=== PATIENT | male | born 1940 | race Caucasian/White ===

== ENCOUNTER 2018-10-09 15:35 | Inpatient (IN) | payer MEDICARE, OTHER ==
[2018-10-09 16:48] LABS: MODE NASAL CANNULA; MetHgb Venous 0.4 %; Sample Type Blood venous; Site VENOUS LINE; Venous COHb 0.3 %; Venous Fraction OxyHgb 87.4 %; Venous Total Hemglobin 14.5 g/dl
[2018-10-09 16:55] LABS: ADD MAN DIFF? NO
[2018-10-09] MEDS: SOD CHLORIDE 0.9% 700 ML IV (17:00)
[2018-10-09 17:03] LABS: WHITE BLOOD COUNT 15.3 10^3/ul (4.8-10.8)
[2018-10-09 17:03] LABS: BASOPHILS % 0.2 % (0.0-2.0); HEMATOCRIT 38.1 % (42.0-52.0); HEMOGLOBIN 12.6 g/dl (14.0-18.0); LYMPHOCYTES # 1.8 10^3/ul (0.8-2.9); LYMPHOCYTES % 11.8 % (15.0-51.0); MEAN CORPUSCULAR HEMOGLOBIN 29.4 pg (29.0-33.0); MEAN CORPUSCULAR HGB CONC 33.1 g/dl (32.0-37.0); MEAN PLATELET VOLUME 10.6 fl (7.4-10.4); MONOCYTE # 1.4 10^3/ul (0.3-0.9); MONOCYTES % 9.4 % (0.0-11.0); NEUTROPHIL # 11.9 10^3/ul (1.6-7.5); NEUTROPHILS % 77.9 % (39.0-77.0); PLATELET COUNT 343 10^3/UL (140-415); RED BLOOD COUNT 4.28 10^6/ul (4.70-6.10); RED CELL DISTRIBUTION WIDTH 13.2 % (11.5-14.5)
[2018-10-09 17:20] LABS: ALANINE AMINOTRANSFERASE 22 IU/L (13-69); ALBUMIN 4.3 g/dl (3.3-4.9); ALBUMIN/GLOBULIN RATIO 1.34; ALKALINE PHOSPHATASE 113 IU/L (42-121); ANION GAP 28 (5-13); ASPARTATE AMINO TRANSFERASE 23 IU/L (15-46); BILIRUBIN,INDIRECT 0.4 mg/dl (0-1.1); BILIRUBIN,TOTAL 0.4 mg/dl (0.2-1.3); BLOOD UREA NITROGEN 47 mg/dl (7-20); CARBON DIOXIDE 14 mmol/L (21-31); CHLORIDE 87 mmol/L (97-110); CREATININE 2.52 mg/dl (0.61-1.24); MAGNESIUM 2.4 mg/dl (1.7-2.5); PHOSPHORUS 3.3 mg/dl (2.5-4.9); POTASSIUM 5.3 mmol/L (3.5-5.1); SODIUM 129 mmol/L (135-144); TOTAL PROTEIN 7.5 g/dl (6.1-8.1)
[2018-10-09 17:23] LABS: INR 0.89; PROTIME 12.2 Sec (11.9-14.9)
[2018-10-09 17:24] LABS: PARTIAL THROMBOPLASTIN TIME 31.1 Sec (23.0-35.0)
[2018-10-09 17:29] LABS: GLUCOSE 420 mg/dl (70-220)
[2018-10-09 17:30] LABS: TROPONIN-I < 0.012 ng/ml (0.000-0.120)
[2018-10-09] MEDS ORDERED: NS + KCL 40 MEQ 1,000 ML IV (17:50)
[2018-10-09] MEDS ORDERED: DEXTROSE 10%/0.45% NACL 1,000 ML IV (17:50)
[2018-10-09] MEDS ORDERED: D10/0.45% NACL + KCL 30 MEQ 1,000 ML IV (17:50)
[2018-10-09] MEDS ORDERED: NS + KCL 30 MEQ 1,000 ML IV (17:50)
[2018-10-09] MEDS ORDERED: D10/0.45% NACL + KCL 40 MEQ 1,000 ML IV (17:50)
[2018-10-09] MEDS ORDERED: DEXTROSE 50% 50 ML SYRINGE IV ×2 (18:00)
[2018-10-09 18:20] LABS: HEMOGLOBIN A1C 10.8 % (0-5.9)
[2018-10-09] MEDS: LACTATED RINGER'S 700 ML IV (18:40)
[2018-10-09 19:30] LABS: ANION GAP 20 (5-13); BLOOD UREA NITROGEN 46 mg/dl (7-20); CALCIUM 8.8 mg/dl (8.4-10.2); CARBON DIOXIDE 14 mmol/L (21-31); CHLORIDE 92 mmol/L (97-110); MAGNESIUM 2.2 mg/dl (1.7-2.5); PHOSPHORUS 3.6 mg/dl (2.5-4.9); POTASSIUM 5.3 mmol/L (3.5-5.1); SODIUM 126 mmol/L (135-144)
[2018-10-09 19:47] LABS: URINE BLOOD (Dip) POC Trace-intact (NEGATIVE); URINE KETONES (Dip) POC 4+ (NEGATIVE); URINE LEUKOCYTE EST (Dip) POC Negative (NEGATIVE); URINE NITRITE (Dip) POC Negative (NEGATIVE); URINE TOTAL PROTEIN POC 1+ (NEGATIVE)
[2018-10-09 19:48] LABS: GLUCOSE 432 mg/dl (70-220)
[2018-10-09 20:04] LABS: MODE NASAL CANNULA; MetHgb Venous 0.5 %; Sample Type Blood venous; Site VENOUS LINE; Venous COHb 0.3 %; Venous Fraction OxyHgb 74.4 %; Venous Total Hemglobin 12.2 g/dl
[2018-10-09 20:20] LABS: ADD UMIC YES; UR ASCORBIC ACID NEGATIVE (NEGATIVE); UR BILIRUBIN (Dip) NEGATIVE (NEGATIVE); UR BLOOD (Dip) 1+ mg/dL (NEGATIVE); UR CLARITY CLEAR (CLEAR); UR COLOR YELLOW (YELLOW); UR GLUCOSE (Dip) 3+ mg/dL (NEGATIVE); UR KETONES (Dip) 2+ mg/dL (NEGATIVE); UR LEUKOCYTE ESTERASE (Dip) NEGATIVE Leu/ul (NEGATIVE); UR MUCUS FEW /HPF (NONE SEEN); UR NITRITE (Dip) NEGATIVE (NEGATIVE); UR RBC 1 /HPF (0-5); UR SPECIFIC GRAVITY (Dip) 1.018 (1.003-1.030); UR TOTAL PROTEIN (Dip) NEGATIVE (NEGATIVE); UR UROBILINOGEN (Dip) NEGATIVE (NEGATIVE); UR WBC 0 /HPF (0-5)
[2018-10-09] MEDS: INSULIN REGULAR, HUMAN 100 UNIT in SOD CHLORIDE 0.9% 100 ML IV (21:06)
[2018-10-09] MEDS: SOD CHLORIDE 0.9% 1,000 ML IV (21:40)
[2018-10-09 22:16] LABS: MODE NASAL CANNULA; MetHgb Venous 0.5 %; Sample Type Blood venous; Site VENOUS LINE; Venous COHb 0.3 %; Venous Fraction OxyHgb 82.9 %; Venous Oxygen Sat 83.6 mmHG (55.0-75.0); Venous Total Hemglobin 12.3 g/dl
[2018-10-09 23:33] LABS: ANION GAP 28 (5-13); BLOOD UREA NITROGEN 44 mg/dl (7-20); CALCIUM 9.3 mg/dl (8.4-10.2); CHLORIDE 93 mmol/L (97-110); CREATININE 2.47 mg/dl (0.61-1.24); MAGNESIUM 2.2 mg/dl (1.7-2.5); PHOSPHORUS 4.6 mg/dl (2.5-4.9); POTASSIUM 5.8 mmol/L (3.5-5.1); SODIUM 130 mmol/L (135-144)
[2018-10-09 23:42] LABS: CARBON DIOXIDE 9 mmol/L (21-31); GLUCOSE 567 mg/dl (70-220)
[2018-10-10] MEDS ORDERED: ONDANSETRON 4 MG INJ IV (02:00)
[2018-10-10] MEDS ORDERED: DEXTROSE 50% 50 ML SYRINGE IV ×3 (02:00→20:00)
[2018-10-10] MEDS ORDERED: ZOLPIDEM 5 MG TAB PO (02:00)
[2018-10-10] MEDS ORDERED: NS + KCL 30 MEQ 1,000 ML IV (02:00)
[2018-10-10] MEDS ORDERED: NS + KCL 40 MEQ 1,000 ML IV (02:00)
[2018-10-10] MEDS ORDERED: D10/0.45% NACL + KCL 40 MEQ 1,000 ML IV (02:00)
[2018-10-10] MEDS: SOD CHLORIDE 0.9% 1,000 ML IV (02:16)
[2018-10-10] MEDS: INSULIN REGULAR, HUMAN 100 UNIT in SOD CHLORIDE 0.9% 100 ML IV ×2 (02:16→09:21)
[2018-10-10] MEDS: ACCU-CHEK XX ×14 (02:18→15:00)
[2018-10-10] MEDS: DEXTROSE 10%/0.45% NACL 1,000 ML IV (03:11)
[2018-10-10 03:26] LABS: Allen Test ACCEPTAB; MODE NASAL CANNULA; MetHgb Venous 0.5 %; Sample Type Blood venous; Site VENOUS LINE; Venous COHb 0.3 %; Venous Fraction OxyHgb 61.8 %; Venous Oxygen Sat 62.3 mmHG (55.0-75.0); Venous Total Hemglobin 11.5 g/dl
[2018-10-10 05:14] LABS: ANION GAP 15 (5-13); BLOOD UREA NITROGEN 40 mg/dl (7-20); CALCIUM 9.2 mg/dl (8.4-10.2); CARBON DIOXIDE 21 mmol/L (21-31); CHLORIDE 102 mmol/L (97-110); CREATININE 1.85 mg/dl (0.61-1.24); GLUCOSE 200 mg/dl (70-220); MAGNESIUM 2.2 mg/dl (1.7-2.5); PHOSPHORUS 2.6 mg/dl (2.5-4.9); POTASSIUM 4.7 mmol/L (3.5-5.1); SODIUM 138 mmol/L (135-144)
[2018-10-10] MEDS: PANTOPRAZOLE (EC) 40 MG TAB PO (06:10)
[2018-10-10 06:18] LABS: MODE NASAL CANNULA; MetHgb Venous 0.2 %; Sample Type Blood venous; Site VENOUS LINE; Venous COHb 0.4 %; Venous Fraction OxyHgb 55.2 %; Venous Oxygen Sat 55.5 mmHG (55.0-75.0); Venous Total Hemglobin 12.6 g/dl
[2018-10-10 06:50] LABS: HEMOGLOBIN A1C 11.1 % (0-5.9)
[2018-10-10] MEDS: D10/0.45% NACL + KCL 30 MEQ 1,000 ML IV (07:02)
[2018-10-10 07:26] LABS: ANION GAP 14 (5-13); BLOOD UREA NITROGEN 39 mg/dl (7-20); CARBON DIOXIDE 20 mmol/L (21-31); CHLORIDE 103 mmol/L (97-110); CREATININE 1.68 mg/dl (0.61-1.24); GLUCOSE 189 mg/dl (70-220); MAGNESIUM 2.1 mg/dl (1.7-2.5); PHOSPHORUS 2.5 mg/dl (2.5-4.9); POTASSIUM 4.7 mmol/L (3.5-5.1); SODIUM 137 mmol/L (135-144)
[2018-10-10] MEDS: QUETIAPINE 25 MG TAB PO ×3 (08:23→20:43)
[2018-10-10] MEDS: LEVETIRACETAM 500 MG TAB PO ×2 (08:23→20:42)
[2018-10-10 08:47] LABS: THYROID STIMULATING HORMONE 0.582 MIU/L (0.465-4.680)
[2018-10-10 10:30] LABS: ANION GAP 7 (5-13); BLOOD UREA NITROGEN 32 mg/dl (7-20); CALCIUM 8.4 mg/dl (8.4-10.2); CARBON DIOXIDE 23 mmol/L (21-31); CHLORIDE 105 mmol/L (97-110); CREATININE 1.29 mg/dl (0.61-1.24); GLUCOSE 186 mg/dl (70-220); PHOSPHORUS 1.6 mg/dl (2.5-4.9); POTASSIUM 3.6 mmol/L (3.5-5.1); SODIUM 135 mmol/L (135-144)
[2018-10-10] MEDS ORDERED: INSULIN HUMAN REGULAR 100 UNIT in SOD CHLORIDE 0.9% 99 ML IV (12:00)
[2018-10-10] MEDS: DEXTROSE 5%-0.45% NACL 1,000 ML IV (12:28)
[2018-10-10] MEDS: DEXTROSE 50% 50 ML SYRINGE IV ×3 (13:28→17:56)
[2018-10-10] MEDS: POTASSIUM PHOSPHATE 15 MM in SOD CHLORIDE 0.9% 250 ML IVPB (13:32)
[2018-10-10] MEDS: INSULIN ASPART [NOVOLOG] 3 ML PEN SC ×3 (17:35→20:43)
[2018-10-10] MEDS ORDERED: GLUCAGON 1 MG INJ IM (20:00)
[2018-10-10] MEDS ORDERED: GLUCOSE GEL 15 GRAM TUBE PO ×2 (20:00)
[2018-10-10] MEDS ORDERED: GLUCOSE GEL 15 GRAM TUBE BUCCAL (20:00)
[2018-10-10] MEDS: INSULIN GLARGINE [LANTus] (100 UNITS/ML) SYG SC (20:54)
[2018-10-11] MEDS: ACCU-CHEK XX (02:00)
[2018-10-11] MEDS: PANTOPRAZOLE (EC) 40 MG TAB PO (05:25)
[2018-10-11 05:42] LABS: ADD MAN DIFF? NO
[2018-10-11 06:03] LABS: WHITE BLOOD COUNT 7.2 10^3/ul (4.8-10.8)
[2018-10-11 06:03] LABS: BASOPHILS % 0.1 % (0.0-2.0); EOSINOPHILS # 0.2 10^3/ul (0.0-0.5); EOSINOPHILS % 2.2 % (0.0-7.0); HEMATOCRIT 35.8 % (42.0-52.0); HEMOGLOBIN 11.9 g/dl (14.0-18.0); LYMPHOCYTES # 1.7 10^3/ul (0.8-2.9); LYMPHOCYTES % 22.9 % (15.0-51.0); MEAN CORPUSCULAR HEMOGLOBIN 29.3 pg (29.0-33.0); MEAN CORPUSCULAR HGB CONC 33.2 g/dl (32.0-37.0); MEAN CORPUSCULAR VOLUME 88.2 fl (82.0-101.0); MEAN PLATELET VOLUME 10.8 fl (7.4-10.4); MONOCYTE # 0.6 10^3/ul (0.3-0.9); MONOCYTES % 8.9 % (0.0-11.0); NEUTROPHIL # 4.7 10^3/ul (1.6-7.5); NEUTROPHILS % 65.5 % (39.0-77.0); PLATELET COUNT 185 10^3/UL (140-415); RED BLOOD COUNT 4.06 10^6/ul (4.70-6.10); RED CELL DISTRIBUTION WIDTH 13.6 % (11.5-14.5)
[2018-10-11 06:19] LABS: ANION GAP 10 (5-13); BLOOD UREA NITROGEN 16 mg/dl (7-20); CALCIUM 8.9 mg/dl (8.4-10.2); CARBON DIOXIDE 25 mmol/L (21-31); CHLORIDE 103 mmol/L (97-110); CREATININE 0.82 mg/dl (0.61-1.24); GLUCOSE 119 mg/dl (70-220); MAGNESIUM 1.8 mg/dl (1.7-2.5); PHOSPHORUS 2.6 mg/dl (2.5-4.9); POTASSIUM 3.7 mmol/L (3.5-5.1); SODIUM 138 mmol/L (135-144)
[2018-10-11] MEDS: INSULIN ASPART [NOVOLOG] 3 ML PEN SC ×7 (07:50→20:22)
[2018-10-11] MEDS: LEVETIRACETAM 500 MG TAB PO ×2 (08:37→20:21)
[2018-10-11] MEDS: QUETIAPINE 25 MG TAB PO ×3 (08:37→20:21)
[2018-10-11] MEDS: ENOXAPARIN 30 MG/0.3 ML SYG SC (08:44)
[2018-10-11] MEDS: DEXTROSE 50% 50 ML SYRINGE IV (12:16)
[2018-10-11] MEDS: POTASSIUM CHLORIDE 50 ML IVPB (20:21)
[2018-10-11] MEDS: INSULIN GLARGINE [LANTus] (100 UNITS/ML) SYG SC (20:53)
[2018-10-12] MEDS: ACCU-CHEK XX (02:00)
[2018-10-12] MEDS: PANTOPRAZOLE (EC) 40 MG TAB PO (05:15)
[2018-10-12] MEDS: INSULIN ASPART [NOVOLOG] 3 ML PEN SC ×7 (07:55→20:08)
[2018-10-12] MEDS: LEVETIRACETAM 500 MG TAB PO ×2 (08:24→20:09)
[2018-10-12] MEDS: QUETIAPINE 25 MG TAB PO ×3 (08:25→20:08)
[2018-10-12] MEDS: ENOXAPARIN 30 MG/0.3 ML SYG SC (08:33)
[2018-10-12] MEDS: SENNA TAB PO ×2 (12:04→20:08)
[2018-10-12] MEDS: INSULIN GLARGINE [LANTus] (100 UNITS/ML) SYG SC (20:18)
[2018-10-13] MEDS: ACCU-CHEK XX ×2 (02:00→18:04)
[2018-10-13 05:19] LABS: ADD MAN DIFF? NO
[2018-10-13 05:30] LABS: WHITE BLOOD COUNT 5.1 10^3/ul (4.8-10.8)
[2018-10-13 05:30] LABS: BASOPHILS % 0.2 % (0.0-2.0); EOSINOPHILS # 0.1 10^3/ul (0.0-0.5); EOSINOPHILS % 1.8 % (0.0-7.0); HEMATOCRIT 36.7 % (42.0-52.0); HEMOGLOBIN 11.7 g/dl (14.0-18.0); LYMPHOCYTES # 1.8 10^3/ul (0.8-2.9); LYMPHOCYTES % 35.6 % (15.0-51.0); MEAN CORPUSCULAR HEMOGLOBIN 28.7 pg (29.0-33.0); MEAN CORPUSCULAR HGB CONC 31.9 g/dl (32.0-37.0); MEAN CORPUSCULAR VOLUME 90.2 fl (82.0-101.0); MONOCYTE # 0.5 10^3/ul (0.3-0.9); MONOCYTES % 10.1 % (0.0-11.0); NEUTROPHIL # 2.6 10^3/ul (1.6-7.5); NEUTROPHILS % 51.9 % (39.0-77.0); PLATELET COUNT 207 10^3/UL (140-415); RED BLOOD COUNT 4.07 10^6/ul (4.70-6.10); RED CELL DISTRIBUTION WIDTH 13.5 % (11.5-14.5)
[2018-10-13 05:58] LABS: ANION GAP 9 (5-13); BLOOD UREA NITROGEN 15 mg/dl (7-20); CALCIUM 8.9 mg/dl (8.4-10.2); CARBON DIOXIDE 32 mmol/L (21-31); CHLORIDE 98 mmol/L (97-110); CREATININE 0.75 mg/dl (0.61-1.24); GLUCOSE 297 mg/dl (70-220); POTASSIUM 4.7 mmol/L (3.5-5.1); SODIUM 139 mmol/L (135-144)
[2018-10-13] MEDS: PANTOPRAZOLE (EC) 40 MG TAB PO (06:32)
[2018-10-13] MEDS: INSULIN ASPART [NOVOLOG] 3 ML PEN SC ×8 (07:30→20:26)
[2018-10-13] MEDS: SENNA TAB PO ×2 (08:21→20:16)
[2018-10-13] MEDS: LEVETIRACETAM 500 MG TAB PO ×2 (08:21→20:16)
[2018-10-13] MEDS: QUETIAPINE 25 MG TAB PO ×3 (08:21→20:29)
[2018-10-13] MEDS: ENOXAPARIN 30 MG/0.3 ML SYG SC (08:27)
[2018-10-13] MEDS: INSULIN GLARGINE [LANTus] (100 UNITS/ML) SYG SC (20:26)
[2018-10-14] MEDS: ACCU-CHEK XX (01:53)
[2018-10-14] MEDS: PANTOPRAZOLE (EC) 40 MG TAB PO (07:14)
[2018-10-14] MEDS: SENNA TAB PO ×2 (08:36→20:07)
[2018-10-14] MEDS: LEVETIRACETAM 500 MG TAB PO ×2 (08:36→20:07)
[2018-10-14] MEDS: QUETIAPINE 25 MG TAB PO ×3 (08:36→20:07)
[2018-10-14] MEDS: ENOXAPARIN 30 MG/0.3 ML SYG SC (08:41)
[2018-10-14] MEDS: INSULIN ASPART [NOVOLOG] 3 ML PEN SC ×8 (08:46→20:50)
[2018-10-14] MEDS: INSULIN GLARGINE [LANTus] (100 UNITS/ML) SYG SC (20:50)
[2018-10-14] MEDS: NPH, HUMAN INSULIN ISOPHANE 3ML VIAL SC (21:42)
[2018-10-15] MEDS: ACCU-CHEK XX (02:33)
[2018-10-15] MEDS: PANTOPRAZOLE (EC) 40 MG TAB PO (05:37)
[2018-10-15 06:48] LABS: ANION GAP 11 (5-13); BLOOD UREA NITROGEN 13 mg/dl (7-20); CALCIUM 8.4 mg/dl (8.4-10.2); CARBON DIOXIDE 28 mmol/L (21-31); CHLORIDE 100 mmol/L (97-110); CREATININE 0.56 mg/dl (0.61-1.24); GLUCOSE 120 mg/dl (70-220); SODIUM 139 mmol/L (135-144)
[2018-10-15] MEDS ORDERED: INSULIN ASPART [NOVOLOG] 3 ML PEN SC (07:00)
[2018-10-15] MEDS: INSULIN ASPART [NOVOLOG] 3 ML PEN SC ×7 (07:59→21:00)
[2018-10-15] MEDS: QUETIAPINE 25 MG TAB PO ×3 (08:28→21:08)
[2018-10-15] MEDS: SENNA TAB PO ×2 (08:28→21:08)
[2018-10-15] MEDS: LEVETIRACETAM 500 MG TAB PO ×2 (08:28→21:08)
[2018-10-15] MEDS: ENOXAPARIN 30 MG/0.3 ML SYG SC (08:34)
[2018-10-15] MEDS: INSULIN GLARGINE [LANTus] (100 UNITS/ML) SYG SC (21:22)
[2018-10-15] MEDS: NPH, HUMAN INSULIN ISOPHANE 3ML VIAL SC (21:22)
[2018-10-16] MEDS: ACCU-CHEK XX (02:06)
[2018-10-16] MEDS: PANTOPRAZOLE (EC) 40 MG TAB PO (06:16)
[2018-10-16 06:34] LABS: ANION GAP 8 (5-13); BLOOD UREA NITROGEN 17 mg/dl (7-20); CALCIUM 9.4 mg/dl (8.4-10.2); CARBON DIOXIDE 27 mmol/L (21-31); CHLORIDE 103 mmol/L (97-110); CREATININE 0.62 mg/dl (0.61-1.24); GLUCOSE 245 mg/dl (70-220); MAGNESIUM 1.7 mg/dl (1.7-2.5); POTASSIUM 4.9 mmol/L (3.5-5.1); SODIUM 138 mmol/L (135-144)
[2018-10-16] MEDS: INSULIN ASPART [NOVOLOG] 3 ML PEN SC ×7 (07:48→21:00)
[2018-10-16] MEDS: QUETIAPINE 25 MG TAB PO ×3 (07:57→21:22)
[2018-10-16] MEDS: SENNA TAB PO ×2 (07:58→21:21)
[2018-10-16] MEDS: LEVETIRACETAM 500 MG TAB PO ×2 (07:58→21:21)
[2018-10-16] MEDS: ENOXAPARIN 30 MG/0.3 ML SYG SC (08:04)
[2018-10-16 14:07] LABS: C-PEPTIDE <0.10 ng/mL (0.80-3.85)
[2018-10-16] MEDS: NPH, HUMAN INSULIN ISOPHANE 3ML VIAL SC (21:29)
[2018-10-16] MEDS: INSULIN GLARGINE [LANTus] (100 UNITS/ML) SYG SC (21:29)
[2018-10-17] MEDS: ACCU-CHEK XX (02:15)
[2018-10-17] MEDS: PANTOPRAZOLE (EC) 40 MG TAB PO (05:30)
[2018-10-17] MEDS: INSULIN ASPART [NOVOLOG] 3 ML PEN SC ×7 (07:00→21:07)
[2018-10-17] MEDS: SENNA TAB PO ×2 (08:18→21:03)
[2018-10-17] MEDS: LEVETIRACETAM 500 MG TAB PO ×2 (08:18→21:03)
[2018-10-17] MEDS: QUETIAPINE 25 MG TAB PO ×3 (08:19→21:03)
[2018-10-17] MEDS: ENOXAPARIN 30 MG/0.3 ML SYG SC (10:06)
[2018-10-17] MEDS: INSULIN GLARGINE [LANTus] (100 UNITS/ML) SYG SC (21:07)
[2018-10-17] MEDS: NPH, HUMAN INSULIN ISOPHANE 3ML VIAL SC (21:08)
[2018-10-18] MEDS: ACCU-CHEK XX (01:28)
[2018-10-18] MEDS: PANTOPRAZOLE (EC) 40 MG TAB PO (05:37)
[2018-10-18] MEDS: INSULIN ASPART [NOVOLOG] 3 ML PEN SC ×7 (07:00→21:00)
[2018-10-18] MEDS: SENNA TAB PO ×2 (08:39→20:34)
[2018-10-18] MEDS: QUETIAPINE 25 MG TAB PO ×3 (08:39→20:34)
[2018-10-18] MEDS: LEVETIRACETAM 500 MG TAB PO ×2 (08:39→20:34)
[2018-10-18] MEDS: ENOXAPARIN 30 MG/0.3 ML SYG SC (08:47)
[2018-10-18] MEDS: INSULIN GLARGINE [LANTus] (100 UNITS/ML) SYG SC (20:39)
[2018-10-18] MEDS: NPH, HUMAN INSULIN ISOPHANE 3ML VIAL SC (22:00)
[2018-10-19] MEDS: ACCU-CHEK XX (02:00)
[2018-10-19 05:29] LABS: ADD MAN DIFF? NO
[2018-10-19 05:38] LABS: BASOPHIL # 0.1 10^3/ul (0.0-0.1); BASOPHILS % 0.9 % (0.0-2.0); EOSINOPHILS # 0.1 10^3/ul (0.0-0.5); EOSINOPHILS % 1.6 % (0.0-7.0); HEMATOCRIT 37.2 % (42.0-52.0); HEMOGLOBIN 12.1 g/dl (14.0-18.0); LYMPHOCYTES # 2.8 10^3/ul (0.8-2.9); LYMPHOCYTES % 41.9 % (15.0-51.0); MEAN CORPUSCULAR HEMOGLOBIN 29.1 pg (29.0-33.0); MEAN CORPUSCULAR HGB CONC 32.5 g/dl (32.0-37.0); MEAN CORPUSCULAR VOLUME 89.4 fl (82.0-101.0); MONOCYTE # 1.1 10^3/ul (0.3-0.9); MONOCYTES % 16.6 % (0.0-11.0); NEUTROPHIL # 2.5 10^3/ul (1.6-7.5); NEUTROPHILS % 37.4 % (39.0-77.0); PLATELET COUNT 404 10^3/UL (140-415); RED BLOOD COUNT 4.16 10^6/ul (4.70-6.10); RED CELL DISTRIBUTION WIDTH 14.2 % (11.5-14.5)
[2018-10-19 05:38] LABS: WHITE BLOOD COUNT 6.7 10^3/ul (4.8-10.8)
[2018-10-19] MEDS: PANTOPRAZOLE (EC) 40 MG TAB PO (05:52)
[2018-10-19 06:04] LABS: ANION GAP 9 (5-13); BLOOD UREA NITROGEN 22 mg/dl (7-20); CARBON DIOXIDE 26 mmol/L (21-31); CHLORIDE 106 mmol/L (97-110); CREATININE 0.71 mg/dl (0.61-1.24); GLUCOSE 186 mg/dl (70-220); POTASSIUM 4.2 mmol/L (3.5-5.1); SODIUM 141 mmol/L (135-144)
[2018-10-19] MEDS: INSULIN ASPART [NOVOLOG] 3 ML PEN SC ×7 (07:00→20:38)
[2018-10-19] MEDS: SENNA TAB PO ×2 (09:06→20:38)
[2018-10-19] MEDS: LEVETIRACETAM 500 MG TAB PO ×2 (09:06→20:38)
[2018-10-19] MEDS: QUETIAPINE 25 MG TAB PO ×3 (09:06→20:38)
[2018-10-19] MEDS: ENOXAPARIN 30 MG/0.3 ML SYG SC (09:11)
[2018-10-19] MEDS: INSULIN GLARGINE [LANTus] (100 UNITS/ML) SYG SC (20:41)
[2018-10-19] MEDS: NPH, HUMAN INSULIN ISOPHANE 3ML VIAL SC ×2 (22:00→22:35)
[2018-10-20] MEDS: ACCU-CHEK XX (01:55)
[2018-10-20] MEDS: PANTOPRAZOLE (EC) 40 MG TAB PO (06:11)
[2018-10-20] MEDS: SENNA TAB PO ×2 (08:18→20:34)
[2018-10-20] MEDS: LEVETIRACETAM 500 MG TAB PO ×2 (08:18→20:34)
[2018-10-20] MEDS: INSULIN ASPART [NOVOLOG] 3 ML PEN SC ×7 (08:23→20:40)
[2018-10-20] MEDS: QUETIAPINE 25 MG TAB PO ×3 (08:24→20:34)
[2018-10-20] MEDS: ENOXAPARIN 30 MG/0.3 ML SYG SC (08:24)
[2018-10-20] MEDS: INSULIN GLARGINE [LANTus] (100 UNITS/ML) SYG SC (20:39)
[2018-10-21] MEDS: ACETAMINOPHEN 325 MG TAB PO (01:25)
[2018-10-21] MEDS: ACCU-CHEK XX (02:00)
[2018-10-21] MEDS: PANTOPRAZOLE (EC) 40 MG TAB PO (05:30)
[2018-10-21] MEDS: INSULIN ASPART [NOVOLOG] 3 ML PEN SC ×7 (07:00→21:00)
[2018-10-21] MEDS: ENOXAPARIN 30 MG/0.3 ML SYG SC (09:05)
[2018-10-21] MEDS: SENNA TAB PO ×2 (09:06→21:05)
[2018-10-21] MEDS: QUETIAPINE 25 MG TAB PO ×3 (09:06→21:05)
[2018-10-21] MEDS: LEVETIRACETAM 500 MG TAB PO ×2 (09:06→21:05)
[2018-10-21] MEDS: INSULIN GLARGINE [LANTus] (100 UNITS/ML) SYG SC (21:09)
[2018-10-22] MEDS: ACCU-CHEK XX (01:39)
[2018-10-22] MEDS: PANTOPRAZOLE (EC) 40 MG TAB PO (06:18)
[2018-10-22] MEDS: INSULIN ASPART [NOVOLOG] 3 ML PEN SC ×7 (08:12→20:39)
[2018-10-22] MEDS: ENOXAPARIN 30 MG/0.3 ML SYG SC (08:13)
[2018-10-22] MEDS: LEVETIRACETAM 500 MG TAB PO ×2 (08:15→20:40)
[2018-10-22] MEDS: SENNA TAB PO ×2 (08:15→20:39)
[2018-10-22] MEDS: QUETIAPINE 25 MG TAB PO ×3 (08:15→20:39)
[2018-10-22] MEDS: INSULIN GLARGINE [LANTus] (100 UNITS/ML) SYG SC (20:41)
[2018-10-23] MEDS: ACCU-CHEK XX (02:00)
[2018-10-23] MEDS: PANTOPRAZOLE (EC) 40 MG TAB PO (05:42)
[2018-10-23] MEDS: SENNA TAB PO ×2 (08:25→21:35)
[2018-10-23] MEDS: QUETIAPINE 25 MG TAB PO ×3 (08:25→21:35)
[2018-10-23] MEDS: LEVETIRACETAM 500 MG TAB PO ×2 (08:25→21:35)
[2018-10-23] MEDS: ENOXAPARIN 30 MG/0.3 ML SYG SC (08:27)
[2018-10-23] MEDS: INSULIN ASPART [NOVOLOG] 3 ML PEN SC ×7 (08:33→21:36)
[2018-10-23] MEDS: INSULIN GLARGINE [LANTus] (100 UNITS/ML) SYG SC (21:36)
[2018-10-24] MEDS: ACCU-CHEK XX (02:00)
[2018-10-24] MEDS: PANTOPRAZOLE (EC) 40 MG TAB PO (06:15)
[2018-10-24] MEDS: LEVETIRACETAM 500 MG TAB PO (08:28)
[2018-10-24] MEDS: QUETIAPINE 25 MG TAB PO ×2 (08:28→12:31)
[2018-10-24] MEDS: SENNA TAB PO (08:28)
[2018-10-24] MEDS: INSULIN ASPART [NOVOLOG] 3 ML PEN SC ×4 (08:31→12:27)
[2018-10-24] MEDS: ENOXAPARIN 30 MG/0.3 ML SYG SC (08:34)
== END 2018-10-24 16:00 | DRG 638 ==
LOC: ICU 18:24 → 2NE 10-18 02:20 → E/R 15:35 → PP2 10-22 21:55 → 5EC 10-22 22:21 → ICU 10-10 01:31 → 6WM 10-10 22:06
PROVIDERS: Internal Medicine
DX: E10.10 Type 1 diabetes mellitus with ketoacidosis without coma (principal); N17.9 Acute kidney failure, unspecified; R65.10 Systemic inflammatory response syndrome (SIRS) of non-infectious origin without acute organ dysfunction; Z79.82 Long term (current) use of aspirin; Z79.4 Long term (current) use of insulin; I11.0 Hypertensive heart disease with heart failure; I50.9 Heart failure, unspecified; E78.00 Pure hypercholesterolemia, unspecified; D64.9 Anemia, unspecified; F20.9 Schizophrenia, unspecified; G40.909 Epilepsy, unspecified, not intractable, without status epilepticus; Z85.46 Personal history of malignant neoplasm of prostate
CPT/HCPCS: 36415; 80048; 80053; 81001; 81003; 82803; 82962; 83036; 83735; 84100; 84443; 84484; 84681; 85025; 85610; 85730; 93005; 97110; 97116; 97161; 97530; 99285-25